=== PATIENT | female | born 1975 | race Caucasian/White ===

== ENCOUNTER → 2020-03-26 | Outpatient (CLI) | payer OTHER ==
[~2020-03-26] MED LIST: FENTANYL CITRATE/PF 100MCG/2 ML INJ ONE; MIDAZOLAM HCL 2 MG/2 ML VIAL ONE
[2020-03-26 08:35] LABS: HEMOGLOBIN 14.9 g/dL (12.0-16.0)
[2020-03-26 08:47] LABS: INR 0.85
--- NOTE | 2020-03-26 11:18 | Diagnostic Imaging Report ---
PROCEDURE: Ultrasound-guided biopsy Procedural Personnel Attending physician(s): Ashlie Jordan MD Fellow physician(s): None Resident physician(s): None Advanced practice provider(s): None Pre-procedure diagnosis: Elevated liver enzymes Post-procedure diagnosis: Same Indication: Organ dysfunction Previous biopsy of same target (QCDR): No Additional clinical history: None Complications: No immediate complications. IMPRESSION: Ultrasound-guided nonfocal right liver biopsy. Plan: Specimen(s) sent for evaluation. PROCEDURE SUMMARY: - Percutaneous US-guided coaxial core needle biopsy - Additional procedure(s): None PROCEDURE DETAILS: Pre-procedure Reference imaging for biopsy target: None Consent: Informed consent for the procedure including risks, benefits and alternatives was obtained and time-out was performed prior to the procedure. Preparation: The site was prepared and draped using maximal sterile barrier technique including cutaneous antisepsis. Anesthesia/sedation Level of anesthesia/sedation: Moderate sedation (conscious sedation) 1mg Versed, 50mcg fentanyl Anesthesia/sedation administered by: Independent trained observer under attending supervision with continuous monitoring of the patient?s level of consciousness and physiologic status Total intra-service sedation time (minutes): 30 Imaging prior to biopsy The patient was positioned supine. Initial ultrasound was performed. Biopsy target: - Maximal diameter (cm): NA - Location: Right liver nonfocal Other findings: None Biopsy Local anesthesia was administered. Under US guidance, the biopsy needle was advanced to the target and biopsy was performed. Coaxial needle: 17 gauge Core needle biopsy device: [employer] Core needle size: 18 gauge Number of core specimens: 3 Needle removal The biopsy needle was removed and a sterile dressing was applied. Tract embolization: None Imaging following biopsy Immediate post-biopsy ultrasound was performed. Post-biopsy imaging findings: No hematoma Additional Details Additional description of procedure: None Equipment details: None Specimens removed: Biopsy samples as detailed above Estimated blood loss (mL): Less than 10 Standardized report: [id number] Attestation Signer name: Ashlie Jordan MD I attest that I was present for the entire procedure. I reviewed the stored images and agree with the report as written. Signed by: Ashlie Jordan MD on 03/26/2020 11:15 AM
== END ==
LOC: US 08:08
PROVIDERS: ATTEND Internal Medicine Gastroenterology
DX: R94.5 Abnormal results of liver function studies (principal)
CPT/HCPCS: 36415; 47000; 76942; 81025; 85014; 85049; 85610; 85730; 88307; J2250; J3010; U0002

== ENCOUNTER 2020-05-07 19:36 | Emergency (ER) | payer OTHER ==
[~2020-05-07] VITALS: Ht 154.9 cm; Wt 93.9 kg
[2020-05-07 20:19] LABS: BASOPHILS # (AUTO) 0.1 (0.0-0.1); BASOPHILS % 0.3 % (0.0-1.0); EOSINOPHILS % 0.1 % (0.0-6.0); HEMATOCRIT 48.2 % (34.2-44.1); HEMOGLOBIN 15.8 g/dL (12.0-16.0); LYMPHOCYTES # (AUTO) 1.4 (1.0-3.2); LYMPHOCYTES % 8.3 % (18.0-39.1); MEAN CORPUSCULAR HEMOGLOBIN 30.3 pg (28-32); MEAN CORPUSCULAR HGB CONC 32.8 g/dL (31-35); MEAN CORPUSCULAR VOLUME 92.5 fL (81-99); MONOCYTES # (AUTO) 0.6 (0.2-0.8); MONOCYTES % 3.4 % (4.4-11.3); NEUTROPHILS # (AUTO) 14.3 (2.1-6.9); NEUTROPHILS % 87.5 % (38.7-80.0); PLATELET COUNT 239 x10e3/uL (140-360); RED BLOOD COUNT 5.21 x10e6/uL (3.6-5.1); RED CELL DISTRIBUTION WIDTH 12.7 % (11.7-14.4)
[2020-05-07 20:38] LABS: ANION GAP 11.2 mmol/L (8-16); BLOOD UREA NITROGEN 7 mg/dL (7-26); BUN/CREATININE RATIO 8 (6-25); CALCIUM 8.2 mg/dL (8.4-10.2); CARBON DIOXIDE 26 mmol/L (22-29); CHLORIDE 105 mmol/L (98-107); CREATININE, SERUM 0.83 mg/dL (0.57-1.11); EST GLOMERULAR FILTRATION RATE > 60 ML/MIN (60-); GLUCOSE 128 mg/dL (74-118); POTASSIUM 4.2 mmol/L (3.5-5.1); SODIUM 138 mmol/L (136-145)
--- NOTE | 2020-05-07 20:42 | Emergency Department Note ---
History of Present Illnes History of Present Illness Chief Complaint: Abdominal Complaints History of Present Illness This is a 44 year old female PRESENTS TO THE ER C/O SUPRAPUBIC ABD PAIN RADIATING TO LT LOWER BACK ONSET TODAY; PT STATES SHE WAS AT [facility] EARLIER TODAY AND TOLD TO COME TO THE ER D/T HEMATURIA; PT DENIES N/V/D, FEVER/CHILLS, DYSURIA OR BURNING WITH URINATION; NAD NOTED AT THIS TIME; . Historian: Patient Arrival Mode: Car A And P Mechanic Required: No Onset (how long ago): hour(s) (6) Location: LEFT BACK, LOWER ABD Quality: PAIN Radiation: Reports back Severity: moderate Onset quality: sudden Duration (how long): hour(s) (6) Timing of current episode: constant Progression: unchanged Chronicity: new Context: Denies recent illness, Denies recent surgery, Denies recent travel, Denies trauma/injury Relieving factors: none Exacerbating factors: none Associated symptoms: Reports denies other symptoms Treatments prior to arrival: none Past Medical/Family History Physician Review I have reviewed the patient's past medical and family history. Any updates have been documented here. Past Medical History Recent Fever: No Clinical Suspicion of Infectio: No New/Unexplained Change in Ment: No Other Medical History: FATTY LIVER Past Surgical History: Cholecysctectomy Social History Smoking Cessation: Never Smoker Alcohol Use: None Any Illegal Drug Use: No Review of Systems Review of Systems Constitutional: Reports no symptoms EENTM: Reports no symptoms Cardiovascular: Reports no symptoms Respiratory: Reports no symptoms Gastrointestinal: Reports as per HPI Genitourinary: Reports as per HPI Musculoskeletal: Reports no symptoms Integumentary: Reports no symptoms Neurological: Reports no symptoms Psychological: Reports no symptoms Endocrine: Reports no symptoms Hematological/Lymphatic: Reports no symptoms Physical Exam Related Data Allergies: Coded Allergies: No Known Allergies (Unverified , 03/26/20) Triage Vital Signs Vital Signs Date Time Temp Pulse Resp B/P (MAP) Pulse Ox O2 Delivery O2 Flow Rate FiO2 05/07/20 19:59 99.0 70 18 119/66 100 Room Air Vital signs reviewed: Yes Physical Exam CONSTITUTIONAL Constitutional: Present well-developed, Present well-nourished; Absent distressed HENT HENT: Present normocephalic, Present atraumatic, Present oropharynx clear/moist, Present nose normal HENT L/R: Present left ext ear normal, Present right ext ear normal EYES Eyes: Reports PERRL, Reports conjunctivae normal NECK Neck: Present ROM normal PULMONARY Pulmonary: Present effort normal, Present breath sounds normal CARDIOVASCULAR Cardiovascular: Present regular rhythm, Present heart sounds normal, Present capillary refill normal, Present normal rate GASTROINTESTINAL Abdominal: Present soft, Present nontender, Present bowel sounds normal, Present left CVA tenderness (MILD) GENITOURINARY Genitourinary: Present exam deferred SKIN Skin: Present warm, Present dry MUSCULOSKELETAL Musculoskeletal: Present ROM normal NEUROLOGICAL Neurological: Present alert, Present oriented x 3, Present no gross motor or sensory deficits PSYCHOLOGICAL Psychological: Present mood/affect normal, Present judgement normal Results Laboratory Result Diagram: 05/07/20200105/07/202001 Laboratory Laboratory Tests Test 05/07/20 20:02 White Blood Count 16.38 x10e3/uL (4.8-10.8) Red Blood Count 5.21 x10e6/uL (3.6-5.1) Hemoglobin 15.8 g/dL (12.0-16.0) Hematocrit 48.2 % (34.2-44.1) Mean Corpuscular Volume 92.5 fL (81-99) Mean Corpuscular Hemoglobin 30.3 pg (28-32) Mean Corpuscular Hemoglobin Concent 32.8 g/dL (31-35) Red Cell Distribution Width 12.7 % (11.7-14.4) Platelet Count 239 x10e3/uL (140-360) Neutrophils (%) (Auto) 87.5 % (38.7-80.0) Lymphocytes (%) (Auto) 8.3 % (18.0-39.1) Monocytes (%) (Auto) 3.4 % (4.4-11.3) Eosinophils (%) (Auto) 0.1 % (0.0-6.0) Basophils (%) (Auto) 0.3 % (0.0-1.0) Neutrophils # (Auto) 14.3 (2.1-6.9) Lymphocytes # (Auto) 1.4 (1.0-3.2) Monocytes # (Auto) 0.6 (0.2-0.8) Eosinophils # (Auto) 0.0 (0.0-0.4) Basophils # (Auto) 0.1 (0.0-0.1) Absolute Immature Granulocyte (auto 0.07 x10e3/uL (0-0.1) Sodium Level 138 mmol/L (136-145) Potassium Level 4.2 mmol/L (3.5-5.1) Chloride Level 105 mmol/L (98-107) Carbon Dioxide Level 26 mmol/L (22-29) Anion Gap 11.2 mmol/L (8-16) Blood Urea Nitrogen 7 mg/dL (7-26) Creatinine 0.83 mg/dL (0.57-1.11) Estimat Glomerular Filtration Rate > 60 ML/MIN (60-) BUN/Creatinine Ratio 8 (6-25) Glucose Level 128 mg/dL (74-118) Calcium Level 8.2 mg/dL (8.4-10.2) Human Chorionic Gonadotropin, Qual Negative (NEGATIVE) Lab results reviewed: Yes Imaging Imaging results reviewed: Yes Impressions EXAM: CT Abdomen and Pelvis WITHOUT contrast INDICATION: ^LEFT FLANK PAIN, STONE PROTOCOL ^[id number] ^2039 ^Y COMPARISON: None. TECHNIQUE: Abdomen and pelvis were scanned utilizing a multidetector helical scanner from the lung base to the pubic symphysis without administration of IV contrast. Absence of intravenous contrast decreases sensitivity for detection of focal lesions and vascular pathology. Coronal and sagittal reformations were obtained. Routine protocol was performed. IV CONTRAST: None ORAL CONTRAST: None COMPLICATIONS: None FINDINGS: LINES and TUBES: None. LOWER THORAX: Unremarkable HEPATOBILIARY: No focal hepatic lesions. No biliary ductal dilation. GALLBLADDER: There are cholecystectomy clips. SPLEEN: No splenomegaly. PANCREAS: No focal masses or ductal dilatation. ADRENALS: No adrenal nodules KIDNEYS/URETERS: Punctate 2 mm calculus in the proximal left ureter. Minimal left hydronephrosis. No cystic or solid mass lesions. GI TRACT: No abnormal distention, wall thickening, or evidence of bowel obstruction. PELVIC ORGANS/BLADDER: Unremarkable. LYMPH NODES: No lymphadenopathy. VESSELS: Unremarkable. PERITONEUM / RETROPERITONEUM: No free air or fluid. BONES: There are degenerative changes in the spine greatest at L5-S1. IMPRESSION: 2 mm calculus in the proximal left ureter with minimal hydronephrosis/pelvic distention. Signed by: Gracy Mackey MD on 05/07/2020 9:15 PM Dictated By: GRACY MACKEY MD 14 Transcribed By: JOVAN on 05/07/202114 COPY TO: JS MORENO MD~ Assessment & Plan Medical Decision Making MDM PT WITH SUPRAPUBIC PAIN AND LEFT FLANK PAIN CBC, BMP, UA, CT ABD/PELVIS ORDERED TO EVAL FOR UTI, KIDNEY STONE, PYELONEPHRITIS, Reassessment Reassessment time: 22:16 Reassessment pt pain free, ready to go home, pt cleared for d/c presribed toradol, tramadol, omnicef and zofran odt referred to dr greenwood and dr maier for follow up Assessment & Plan Final Impression: (1) Ureterolithiasis Depart Disposition: HOME, SELF-CARE Last Vital Signs Date Time Temp Pulse Resp B/P (MAP) Pulse Ox O2 Delivery O2 Flow Rate FiO2 05/07/20 19:59 99.0 70 18 119/66 100 Room Air JS MORENO MD May 07, 2020 20:41
[2020-05-07 20:52] LABS: BILIRUBIN,URINE SMALL (NEGATIVE); CLARITY,URINE SL CLOUDY (CLEAR); COLOR,URINE AMBER (YELLOW); KETONES,URINE TRACE (NEGATIVE); LEUKOCYTE ESTERASE ,URINE NEGATIVE (NEGATIVE); NITRITE,URINE NEGATIVE (NEGATIVE); PROTEIN,URINE DIPSTICK 1+ (NEGATIVE); URINE UROBILINOGEN 0.2 mg/dL (0.2 - 1)
[2020-05-07 21:03] LABS: BACTERIA,URINE MODERATE /HPF; RBC,URINE 21-50 /HPF (0-5)
--- NOTE | 2020-05-07 21:19 | Diagnostic Imaging Report ---
EXAM: CT Abdomen and Pelvis WITHOUT contrast INDICATION: ^LEFT FLANK PAIN, STONE PROTOCOL ^[id number] ^2039 ^Y COMPARISON: None. TECHNIQUE: Abdomen and pelvis were scanned utilizing a multidetector helical scanner from the lung base to the pubic symphysis without administration of IV contrast. Absence of intravenous contrast decreases sensitivity for detection of focal lesions and vascular pathology. Coronal and sagittal reformations were obtained. Routine protocol was performed. IV CONTRAST: None ORAL CONTRAST: None COMPLICATIONS: None FINDINGS: LINES and TUBES: None. LOWER THORAX: Unremarkable HEPATOBILIARY: No focal hepatic lesions. No biliary ductal dilation. GALLBLADDER: There are cholecystectomy clips. SPLEEN: No splenomegaly. PANCREAS: No focal masses or ductal dilatation. ADRENALS: No adrenal nodules KIDNEYS/URETERS: Punctate 2 mm calculus in the proximal left ureter. Minimal left hydronephrosis. No cystic or solid mass lesions. GI TRACT: No abnormal distention, wall thickening, or evidence of bowel obstruction. PELVIC ORGANS/BLADDER: Unremarkable. LYMPH NODES: No lymphadenopathy. VESSELS: Unremarkable. PERITONEUM / RETROPERITONEUM: No free air or fluid. BONES: There are degenerative changes in the spine greatest at L5-S1. IMPRESSION: 2 mm calculus in the proximal left ureter with minimal hydronephrosis/pelvic distention. Signed by: Felix Gibbons MD on 05/07/2020 9:15 PM
[2020-05-07] MEDS ORDERED: KETOROLAC TROMETHAMINE 30 MG/ML VIAL IV STA (21:29)
== END 2020-05-07 22:10 | disposition home or self-care (01) ==
LOC: ER 20:22
DX: R10.30 Lower abdominal pain, unspecified (principal); N13.2 Hydronephrosis with renal and ureteral calculous obstruction; M54.5 Low back pain; R50.9 Fever, unspecified
CPT/HCPCS: 36415; 74176; 81001; 80048; 84702; 85025; 99284; J1885